=== PATIENT | female | born 1950 | race Caucasian/White ===

== ENCOUNTER 2016-10-25 08:54 | Emergency (ER) | payer BC ==
[~2016-10-25] VITALS: Ht 152.4 cm; Wt 64.5 kg
[~2016-10-25 08:54] MED LIST: AMOXICILLIN 8751 TAB PO; ARIMIDEX1 MG PO; ASPIRIN 81M81 MG/TA2 PO; ATIVAN 1MG T1 MG/TAB PO; CLARITIN 1010 MG/TAB PO; JOINT CARE; NORCO 325 MG-51 TAB PO; OMEGA 31000 MG PO; VENTOLIN0.09 MG IH
[2016-10-25 08:59] VITALS: TEMP 97.7
[2016-10-25 11:22] LABS: BASO % 0.4 % (0.0-2.0); EOS % 0.2 % (0-4.0); GRAN # 7.3 (1.4-6.5); GRAN % 78.2 % (42.2-75.2); HEMOGLOBIN 13.9 g/dl (12.5-16.0); LYMPH # 1.6 (1.2-3.4); LYMPH % 16.5 % (20.0-51.0); MEAN CELL VOLUME 93 fl (80.0-100.0); MEAN CORPUSCULAR HEMOGLOBIN 31 pg (27.0-31.0); MEAN CORPUSCULAR HGB CONC 33 g/dl (33.0-37.0); MEAN PLATELET VOLUME 9.3 fl (7.4-10.4); MONO # 0.4 (0.1-0.6); MONO % 4.4 % (1.7-9.3); PLATELET COUNT 230 K/mm3 (130-400); RED BLOOD COUNT 4.54 M/mm3 (4.10-5.30); REDCELL DISTRIBUTION WIDTH-CV 12.1 % (11.5-14.5); WHITE BLOOD COUNT 9.4 K/mm3 (4.8-10.8)
[2016-10-25] MEDS ORDERED: AMBIEN 10MG10 MG PO (11:25)
[2016-10-25] MEDS ORDERED: STIOLTO RESPIMAT4 GM IH (11:26)
[2016-10-25] MEDS ORDERED: LIPITOR 10MG10 MG PO (11:27)
[2016-10-25] MEDS ORDERED: THEO-DUR 2200 MG/TAB PO (11:27)
[2016-10-25] MEDS ORDERED: ATIVAN 1MG T1 MG/TAB PO (11:28)
[2016-10-25 11:29] LABS: CALCIUM 10.1 mg/dL (8.4-10.2); CREATININE, serum 0.73 mg/dL (0.52-1.25); POTASSIUM 4.5 mmol/L (3.4-5.0)
[2016-10-25] MEDS ORDERED: VITAMIND3 5000 (11:29)
[2016-10-25 12:57] VITALS: BP 123/65; PULSE 79
[2017-02-06] MEDS ORDERED: THEO-DUR 3300 MG/TAB PO (12:51)
[2017-02-06] MEDS ORDERED: CARDIZEM120 MG PO (12:53)
[2017-02-06] MEDS ORDERED: PRILOSEC 20MG20 MG (12:54)
[2017-02-06] MEDS ORDERED: ELIQUIS 5MG PO (12:55)
[2017-02-08] MEDS ORDERED: ARIMIDEX1 MG PO (12:58)
== END 2016-10-25 12:37 | disposition home or self-care (01) ==
LOC: COL.ER 08:54
PROVIDERS: Emergency Medicine
DX: S09.90XA Unspecified injury of head, initial encounter (principal); W18.12XA Fall from or off toilet with subsequent striking against object, initial encounter; Y93.E8 Activity, other personal hygiene; Y92.002 Bathroom of unspecified non-institutional (private) residence as the place of occurrence of the external cause; R42 Dizziness and giddiness; R11.2 Nausea with vomiting, unspecified; T42.6X5A Adverse effect of other antiepileptic and sedative-hypnotic drugs, initial encounter; T42.8X5A Adverse effect of antiparkinsonism drugs and other central muscle-tone depressants, initial encounter

== ENCOUNTER 2016-11-23 15:54 | Inpatient (IN) | payer BC ==
[~2016-11-23] VITALS: Ht 152.4 cm; Wt 65.2 kg
[2016-11-23] VITALS (185 sets, daily range): BP systolic 113; BP diastolic 75; PULSE 123; TEMP 100.9; O2SAT 89–100
[~2016-11-23 15:54] MED LIST changes: +AMBIEN 10MG10 MG PO; +LIPITOR 10MG10 MG PO; +STIOLTO RESPIMAT4 GM IH; +THEO-DUR 2200 MG/TAB PO; +VITAMIND3 5000
[2016-11-23 16:17] LABS: HEMATOCRIT 41.8 % (37.0-47.0); HEMOGLOBIN 14.1 g/dl (12.5-16.0); MEAN CELL VOLUME 93 fl (80.0-100.0); MEAN CORPUSCULAR HEMOGLOBIN 31 pg (27.0-31.0); MEAN CORPUSCULAR HGB CONC 34 g/dl (33.0-37.0); MEAN PLATELET VOLUME 9.1 fl (7.4-10.4); PLATELET COUNT 312 K/mm3 (130-400); RED BLOOD COUNT 4.51 M/mm3 (4.10-5.30); REDCELL DISTRIBUTION WIDTH-CV 12.9 % (11.5-14.5)
[2016-11-23 16:20] LABS: ADD PATHOLOGY DIFF REVIEW NO
[2016-11-23 16:29] LABS: ADJUSTED CALCIUM 9.4 mg/dL (8.4-10.2); ALBUMIN 4.4 gm/dL (3.5-5.0); BILIRUBIN,TOTAL 1.1 mg/dL (0.0-1.0); CALCIUM 9.7 mg/dL (8.4-10.2); CREATININE, serum 0.71 mg/dL (0.52-1.25); POTASSIUM 3.4 mmol/L (3.4-5.0); TOTAL PROTEIN 7.3 gm/dL (6.4-8.2)
[2016-11-23 16:40] LABS: BAND 7 % (0-10); NEUTROPHILS 48 % (42.0-75.2); PLATELET ESTIMATE NORMAL (NORMAL); TOTAL CELLS COUNTED 100
[2016-11-23 17:09] LABS: ARTERIAL BLD GAS TCO2 CT 27.8; ARTERIAL BLOOD GAS BASE EXCESS -1.1 (-2-2); ARTERIAL BLOOD GAS HCO3 26.2 meq/L (22-26); ARTERIAL BLOOD GAS PHT 7.31 C (7.35-7.45); ARTERIAL BLOOD GAS PO2 85.2 mmHg (80-100); ARTERIAL BLOOD GAS PO2T 85.2 (80-100); ARTERIAL BLOOD GAS pH 7.31 (7.35-7.45); OXYHEMOGLOBIN 93.6 %
[2016-11-23 17:10] LABS: ATS? YES
[2016-11-23] MEDS ORDERED: STIOLTO RESPIMAT4 GM IH (17:25)
[2016-11-23] MEDS ORDERED: AMOXICILLIN875 MG PO (17:29)
[2016-11-23] MEDS ORDERED: PREDNISONE10 MG PO (17:29)
[2016-11-23] MEDS ORDERED: NYSTATIN OR100 MU/ML PO (17:30)
[2016-11-24] VITALS (178 sets, daily range): BP systolic 114–133; BP diastolic 62–85; PULSE 93–112; TEMP 97.5–98.9; O2SAT 71–100
[2016-11-24 06:22] LABS: BASO % 0.1 % (0.0-2.0); GRAN # 13.6 (1.4-6.5); GRAN % 84.2 % (42.2-75.2); HEMATOCRIT 37.9 % (37.0-47.0); HEMOGLOBIN 12.8 g/dl (12.5-16.0); LYMPH # 1.7 (1.2-3.4); LYMPH % 10.5 % (20.0-51.0); MEAN CELL VOLUME 92 fl (80.0-100.0); MEAN CORPUSCULAR HEMOGLOBIN 31 pg (27.0-31.0); MEAN CORPUSCULAR HGB CONC 34 g/dl (33.0-37.0); MEAN PLATELET VOLUME 9.6 fl (7.4-10.4); MONO # 0.8 (0.1-0.6); MONO % 4.8 % (1.7-9.3); PLATELET COUNT 223 K/mm3 (130-400); RED BLOOD COUNT 4.12 M/mm3 (4.10-5.30); WHITE BLOOD COUNT 16.1 K/mm3 (4.8-10.8)
[2016-11-24 06:32] LABS: CALCIUM 9.6 mg/dL (8.4-10.2); CREATININE, serum 0.66 mg/dL (0.52-1.25); POTASSIUM 3.7 mmol/L (3.4-5.0)
[2016-11-25] VITALS (444 sets, daily range): BP systolic 100–127; BP diastolic 59–82; PULSE 79–173; TEMP 97.1–98.8; O2SAT 84–98
[2016-11-25 07:30] LABS: HEMOGLOBIN 12.1 g/dl (12.5-16.0); MEAN CELL VOLUME 93 fl (80.0-100.0); MEAN CORPUSCULAR HEMOGLOBIN 31 pg (27.0-31.0); MEAN CORPUSCULAR HGB CONC 34 g/dl (33.0-37.0); MEAN PLATELET VOLUME 9.8 fl (7.4-10.4); PLATELET COUNT 265 K/mm3 (130-400); RED BLOOD COUNT 3.88 M/mm3 (4.10-5.30); REDCELL DISTRIBUTION WIDTH-CV 13.4 % (11.5-14.5); WHITE BLOOD COUNT 17.6 K/mm3 (4.8-10.8)
[2016-11-25 07:31] LABS: CALCIUM 9.8 mg/dL (8.4-10.2); CREATININE, serum 0.62 mg/dL (0.52-1.25); POTASSIUM 3.9 mmol/L (3.4-5.0)
[2016-11-25 13:08] LABS: MAGNESIUM 2.4 mg/dL (1.6-2.3); PHOSPHOROUS 3.2 mg/dL (2.5-4.5)
[2016-11-25 16:45] LABS: PH 6 (5-8); URINE APPEARANCE Clear; URINE BACTERIA None Seen /hpf; URINE BILIRUBIN Negative (NEGATIVE); URINE BLOOD Negative (NEGATIVE); URINE COLOR Yellow; URINE GLUCOSE Negative (NEGATIVE); URINE KETONE Negative (NEGATIVE); URINE RBC 0-2 /hpf; URINE UROBILINOGEN Negative (NEGATIVE); URINE WBC 0-2 /hpf
[2016-11-26] VITALS (484 sets, daily range): BP systolic 113–124; BP diastolic 67–68; PULSE 74–90; TEMP 97.3–98.9; O2SAT 80–100
[2016-11-26 06:27] LABS: ALBUMIN 3.5 gm/dL (3.5-5.0); BASO % 0.1 % (0.0-2.0); BILIRUBIN,TOTAL 0.7 mg/dL (0.0-1.0); CALCIUM 9.6 mg/dL (8.4-10.2); CREATININE, serum 0.68 mg/dL (0.52-1.25); GRAN # 7.9 (1.4-6.5); GRAN % 81.2 % (42.2-75.2); LYMPH # 1.3 (1.2-3.4); LYMPH % 13.8 % (20.0-51.0); MEAN CELL VOLUME 93 fl (80.0-100.0); MEAN CORPUSCULAR HGB CONC 33 g/dl (33.0-37.0); MONO # 0.4 (0.1-0.6); MONO % 4.1 % (1.7-9.3); PLATELET COUNT 269 K/mm3 (130-400); RED BLOOD COUNT 3.74 M/mm3 (4.10-5.30); REDCELL DISTRIBUTION WIDTH-CV 13.5 % (11.5-14.5); TOTAL PROTEIN 6.2 gm/dL (6.4-8.2); WHITE BLOOD COUNT 9.7 K/mm3 (4.8-10.8)
[2016-11-26 06:53] LABS: HEMATOCRIT 34.7 % (37.0-47.0); HEMOGLOBIN 11.5 g/dl (12.5-16.0); MEAN CORPUSCULAR HEMOGLOBIN 31 pg (27.0-31.0)
[2016-11-26] MEDS ORDERED: COUMADIN 5MG5 MG/TAB PO (13:13)
[2016-11-26] MEDS ORDERED: PREDNISONE20 MG PO (13:13)
[2016-11-26] MEDS ORDERED: PACERONE400 MG PO (13:13)
[2017-02-06] MEDS ORDERED: THEO-DUR 3300 MG/TAB PO (12:51)
[2017-02-06] MEDS ORDERED: CARDIZEM120 MG PO (12:53)
[2017-02-06] MEDS ORDERED: PRILOSEC 20MG20 MG (12:54)
[2017-02-06] MEDS ORDERED: ELIQUIS 5MG PO (12:55)
[2017-02-08] MEDS ORDERED: ARIMIDEX1 MG PO (12:58)
== END 2016-11-26 14:50 | disposition home or self-care (01) | DRG 189 ==
LOC: COL.ER 15:54 → ICU 18:59 → MEDICAL 18:59 → IMCU 18:59 → ICU 11-24 08:41 → MEDICAL 11-24 09:36 → ICU 11-25 09:01 → IMCU 11-25 19:24
PROVIDERS: Emergency Medicine; Family Medicine; Internal Medicine
DX: J96.01 Acute respiratory failure with hypoxia (principal); J44.1 Chronic obstructive pulmonary disease with (acute) exacerbation; J02.0 Streptococcal pharyngitis; E78.5 Hyperlipidemia, unspecified; F17.210 Nicotine dependence, cigarettes, uncomplicated; J45.909 Unspecified asthma, uncomplicated; I48.91 Unspecified atrial fibrillation; Z85.3 Personal history of malignant neoplasm of breast
CPT/HCPCS: 99223-AI; 99233-AI; 99239; J0282; J0456; J0692; J1650; J2060; J2270; J2920; J2930; J7030; J7050; J7060; J7512

== ENCOUNTER → 2017-02-08 | Outpatient (CLI) | payer BC ==
[~2017-02-08] VITALS: Ht 152.4 cm; Wt 60.0 kg
[~2017-02-08] MED LIST changes: +AMOXICILLIN875 MG PO; +CARDIZEM120 MG PO; +COUMADIN 5MG5 MG/TAB PO; +ELIQUIS 5MG PO; +NYSTATIN OR100 MU/ML PO; +PACERONE400 MG PO; +PREDNISONE10 MG PO; +PREDNISONE20 MG PO; +PRILOSEC 20MG20 MG; +THEO-DUR 3300 MG/TAB PO
[2017-02-08 13:00] VITALS: BP 120/69; PULSE 86
[2017-02-08 14:28] VITALS: BP 140/73; PULSE 79
== END ==
LOC: COL.RAD 12:36
DX: E07.89 Other specified disorders of thyroid (principal); D44.0 Neoplasm of uncertain behavior of thyroid gland
CPT/HCPCS: 13756

== ENCOUNTER 2019-06-18 08:00 | Outpatient (RCR) | payer BC ==
[2019-06-17 08:18] VITALS: BP 111/58; PULSE 93; TEMP 97.8
[~2019-06-18] VITALS: Ht 152.4 cm; Wt 59.5 kg
[2019-06-18 08:41] VITALS: BP 113/61; PULSE 92; TEMP 98.1
== END 2019-09-15 | disposition still patient (30) ==
LOC: EUO
DX: C73 Malignant neoplasm of thyroid gland (principal)
CPT/HCPCS: A9517; J3240

== ENCOUNTER → 2019-06-26 | Outpatient (CLI) | payer BC | LOC: COL.RAD 11:19 | PROVIDERS: Otolaryngology | DX: C73 Malignant neoplasm of thyroid gland (principal) ==